=== PATIENT | female | born 1965 | race Caucasian/White ===

== ENCOUNTER → 2024-10-28 | Outpatient (CLI) | payer OTHER | END | disposition home or self-care (01) | LOC: MAMO-SONO 09:14 | DX: J20.9 Acute bronchitis, unspecified (principal); N60.11 Diffuse cystic mastopathy of right breast; N60.12 Diffuse cystic mastopathy of left breast; Z12.31 Encounter for screening mammogram for malignant neoplasm of breast ==

== ENCOUNTER 2024-11-04 10:39 | Outpatient (CLI) | payer OTHER | END 2024-11-04 11:01 | disposition home or self-care (01) | LOC: MAMO-SONO 10:39 | PROVIDERS: ATTEND General Practice | DX: N63.21 Unspecified lump in the left breast, upper outer quadrant (principal) ==

== ENCOUNTER 2025-01-06 09:58 | Outpatient (CLI) | payer OTHER | END 2025-01-06 09:59 | disposition home or self-care (01) | LOC: NUCLEAR 09:58 | PROVIDERS: ATTEND General Practice | DX: I74.2 Embolism and thrombosis of arteries of the upper extremities (principal); I82.619 Acute embolism and thrombosis of superficial veins of unspecified upper extremity ==

== ENCOUNTER 2025-01-14 08:52 | Outpatient (CLI) | payer OTHER | END 2025-01-14 08:54 | disposition home or self-care (01) | LOC: NUCLEAR 08:52 | PROVIDERS: ATTEND General Practice | DX: I74.2 Embolism and thrombosis of arteries of the upper extremities (principal); I82.619 Acute embolism and thrombosis of superficial veins of unspecified upper extremity ==

== ENCOUNTER 2025-01-26 20:20 | Emergency (ER) | payer OTHER ==
[~2025-01-26] VITALS: Ht 162.6 cm; Wt 83.9 kg
[2025-01-26] MEDS ORDERED: NORVASC5 MG PO (20:36)
[2025-01-26] MEDS ORDERED: ORPHENADRINE CITRATE 30 MG/ML AMPUL IM STA (21:43)
[2025-01-26 23:13] VITALS: BP 142/81; O2SAT 100
== END 2025-01-26 23:18 | disposition home or self-care (01) ==
LOC: ER 20:20
DX: M79.602 Pain in left arm (principal)

== ENCOUNTER 2025-01-28 08:57 | Outpatient (CLI) | payer OTHER ==
[~2025-01-28 08:57] MED LIST: NORVASC5 MG PO
== END 2025-01-28 09:03 | disposition home or self-care (01) ==
LOC: SONOGRAMA 08:57
PROVIDERS: ATTEND General Practice
DX: M79.602 Pain in left arm (principal)

== ENCOUNTER 2025-02-02 13:05 | Outpatient (CLI) | payer OTHER | END 2025-02-02 13:12 | disposition home or self-care (01) | LOC: MRI 13:05 | PROVIDERS: ATTEND General Practice | DX: M75.122 Complete rotator cuff tear or rupture of left shoulder, not specified as traumatic (principal) | CPT/HCPCS: 73221 ==